=== PATIENT | male | born 1945 | race Caucasian/White ===

== ENCOUNTER 2021-02-05 14:55 | Emergency (ER) | payer MEDICARE, SELFPAY ==
[2021-02-05 15:00] VITALS: BP 143/77; PULSE 90; RESP 18; TEMP 36.5; O2SAT 96; BMI 25.7
--- NOTE | 2021-02-05 15:01 | XRR_ITS ---
PROCEDURE INFORMATION: Exam: XR Chest Exam date and time: 02/05/2021 3:06 PM Age: 75 years old Clinical indication: Cough and dyspnea; Smoker's cough; Additional info: Dyspnea/cough TECHNIQUE: Imaging protocol: XR of the chest. Views: 1 view. COMPARISON: No relevant prior studies available. FINDINGS: Lungs: Unremarkable. No consolidation. Pleural spaces: Unremarkable. No pleural effusion. No pneumothorax. Heart/Mediastinum: Unremarkable. No cardiomegaly. Bones/joints: Degenerative changes of the spine. XR/XR chest 1V portable [id number] IMPRESSION: No acute abnormality.
--- NOTE | 2021-02-05 15:01 | ECG_ITS ---
[facility] Test Date: 2021-02-05 Pat Name: Hiram Chacon Department: Room: Gender: Male [employer]: : 1945 Requested By: Kali Galan Order Number: [id number] Moiz MD: Josefina Bowie M.D. Measurements Intervals [place] Rate: 92 P: 90 NM: 191 QRS: 9 QRSD: 67 T: 51 QT: 346 QTc: 428 Interpretive Statements SINUS RHYTHM NONSPECIFIC T-WAVE ABNORMALITY INTERPRETATION BASED ON A DEFAULT AGE OF 40 YEARS No previous ECG available for comparison Electronically Signed On 02-06-2021 6:49:12 CDT by Josefina Bowie M.D. [id number] f
--- NOTE | 2021-02-05 15:14 | ED_ITS ---
HPI - Syncope General: Chief Complaint: Syncope Stated Complaint: syncopal episode Time Seen by Provider: 02/05/21 15:00 History of Present Illness: HPI narrative: 75-year-old male presents to the emergency room with a complaint of a syncopal episode. EMS was called to his home. Evidently he had smoked 1 or 2 puffs off of a marijuana cigarette and went to write a check and then passed out when EMS arrived he was severely bradycardic they administered atropine he was nonresponsive at the time the time he arrived here his heart rate had improved and his blood pressure had resolved he was awake and alert and responsive was able to give a history. He denies any chest pain or shortness of breath denies any major medical problems he is hypertensive but cannot recall if he is regularly been taking his medications. He does not really monitor his blood pressure. Denies any chest or abdominal pain denies any trauma he has no obvious external injuries. MD complaint: loss of consciousness Onset (ago): minute(s) Prodromal symptoms: none Context: at rest Injuries sustained associated with event: none Associated symptoms: Deny abdominal pain, chest pain, fever(s), headache(s), lightheadedness, nausea, short of breath, vertigo or weakness Treatments prior to arrival: IV fluids and other (atropine) Review of Systems Const: Denies: fever(s) ENMT: Denies: throat pain, ear or mastoid pain, nasal discharge or nasal congestion Card: Denies: chest pain or lightheadedness Resp: Denies: dyspnea, productive cough or non-productive cough GI: Denies: abdominal pain or nausea : Denies: flank pain, dysuria, urinary frequency or urinary urgency Skin/Breast: Denies: rash or pruritus Neuro: Denies: headache(s) or vertigo Physical Exam Const: COMMON NORMALS: no acute distress GENERAL APPEARANCE: cooperative and comfortable ORIENTATION/CONSCIOUSNESS: Yes awake, Yes oriented to person, Yes oriented to place and Yes oriented to time HENMT: COMMON NORMALS: normocephalic, atraumatic and hearing grossly normal bilaterally HEAD & SCALP: normocephalic and atraumatic Neck/C-Spine: COMMON NORMALS: full ROM, no lymphadenopathy, supple and no JVD Resp: COMMON NORMALS: normal respiratory effort, No retractions, No use of accessory muscles and clear to auscultation bilaterally AUSCULTATION: clear to auscultation bilaterally Cardio: COMMON NORMALS: no JVD, regular rate, regular rhythm and No murmurs present (Cardio) RATE: regular rate RHYTHM: regular rhythm GI: COMMON NORMALS: Soft to palpation and No hepatosplenomegaly present AUSCULTATION: Yes normoactive bowel sounds PALPATION: Yes Soft to palpation, No Tenderness to palpation present (GI), No Guarding due to palpation present (GI) and Yes No hepatosplenomegaly present Extremity: COMMON NORMALS: normal to inspection, capillary refill normal, no clubbing, cyanosis or edema, no calf tenderness and no pedal edema Neuro: SENSORIUM/ORIENTATION: Yes oriented to person, Yes oriented to place and Yes oriented to time Skin: COMMON NORMALS: no rashes or lesions noted GENERAL SKIN EXAM: no rashes or lesions noted Course Vital Signs: Vital signs: Vital Signs Temperature 97.7 F 02/05/21 15:00 Pulse Rate 78 02/05/21 16:15 Respiratory Rate 18 02/05/21 16:15 Blood Pressure 138/75 02/05/21 16:15 Pulse Oximetry 98 02/05/21 16:15 MDM - Syncope MDM Narrative: Medical decision making narrative: Patient refusing to allow completion of the evaluation. He says he wants to go home he will not stay for second troponin I recommend since he was a profoundly bradycardic that we monitor him overnight he refuses that as well his lactic acid is elevated and he says he understands it could be potentially dangerous if this recurs even life- threatening and still wishes to go home. He was told he could return if you wish to have further evaluation is recurrence of symptoms. Lab Data: Labs: Lab Results 02/05/21 02/05/21 02/05/21 Range/Units 15:23 15:23 15:23 WBC 4.5 (4.0-10.0) 10^3/ uL RBC 4.66 (4.1-5.3) 10^6/u L Hgb 14.1 (11.7-16.6) g/dL Hct 43.5 (42.0-52.0) % MCV 93.3 (80-94) fL MCH 30.3 (28.0-34.0) pg MCHC 32.4 (30.0-36.0) g/dL RDW 13.2 (12.1-15.1) % Plt Count 148 (130-400) 10^3/c mm MPV 9.9 (7.4-10.4) fL Neut % (Auto) 77.8 % Lymph % (Auto) 14.8 % Hartley % (Auto) 6.8 % Eos % (Auto) 0.0 % Baso % (Auto) 0.4 % Neut # (Auto) 3.53 (1.8-7.7) 10^3/u L Lymph # (Auto) 0.7 L (0.8-4.8) 10^3/u L Hartley # (Auto) 0.3 (0.2-0.9) 10^3/u L Eos # (Auto) 0.0 (0.0-0.8) 10^3/u L Baso # (Auto) 0.0 (0.0-0.1) 10^3/u L Nucleated RBC % (a uto) 0 % Nucleated RBCs # 0.0 /100WBC Sodium 139 (136-145) mmol/L Potassium 4.4 (3.5-5.1) mmol/L Chloride 107 (98-107) mmol/L Carbon Dioxide 23 (22-29) mmol/L Anion Gap 13.4 (5-19) BUN 8 (8-23) mg/dL Creatinine 0.8 (0.7-1.2) mg/dL GFR Calculation Not Reportable Glucose 109 (65-115) mg/dL Calculated Osmolal ity 287 (285-295) mOsm/k g Lactic Acid 2.3 H (0.5-2.2) mmol/L Calcium 7.3 L (8.5-10.5) mg/dL Magnesium 1.8 (1.7-2.3) mg/dL Total Bilirubin 0.9 (0.15-1.2) mg/dL AST 18 (0-40) U/L ALT 14 (0-41) U/L Alkaline Phosphata se 103 (40-130) IU/L Troponin T Baselin e (0-15) ng/L Total Protein 5.5 L (6.6-8.7) g/dL Albumin 3.5 (3.5-5.2) g/dL Globulin 2.0 (1.3-4.6) g/dL Lipase 19 (13-60) U/L // Range/Units 15:23 WBC (4.0-10.0) 10^3/ uL RBC (4.1-5.3) 10^6/u L Hgb (11.7-16.6) g/dL Hct (42.0-52.0) % MCV (80-94) fL MCH (28.0-34.0) pg MCHC (30.0-36.0) g/dL RDW (12.1-15.1) % Plt Count (130-400) 10^3/c mm MPV (7.4-10.4) fL Neut % (Auto) % Lymph % (Auto) % Hartley % (Auto) % Eos % (Auto) % Baso % (Auto) % Neut # (Auto) (1.8-7.7) 10^3/u L Lymph # (Auto) (0.8-4.8) 10^3/u L Hartley # (Auto) (0.2-0.9) 10^3/u L Eos # (Auto) (0.0-0.8) 10^3/u L Baso # (Auto) (0.0-0.1) 10^3/u L Nucleated RBC % (a uto) % Nucleated RBCs # /100WBC Sodium (136-145) mmol/L Potassium (3.5-5.1) mmol/L Chloride (98-107) mmol/L Carbon Dioxide (22-29) mmol/L Anion Gap (5-19) BUN (8-23) mg/dL Creatinine (0.7-1.2) mg/dL GFR Calculation Glucose (65-115) mg/dL Calculated Osmolal ity (285-295) mOsm/k g Lactic Acid (0.5-2.2) mmol/L Calcium (8.5-10.5) mg/dL Magnesium (1.7-2.3) mg/dL Total Bilirubin (0.15-1.2) mg/dL AST (0-40) U/L ALT (0-41) U/L Alkaline Phosphata se (40-130) IU/L Troponin T Baselin e 11 (0-15) ng/L Total Protein (6.6-8.7) g/dL Albumin (3.5-5.2) g/dL Globulin (1.3-4.6) g/dL Lipase (13-60) U/L Discharge Plan Discharge Patient Disposition: Left Against Medical Advice Clinical Impression: Bradycardia, Syncope Condition: Stable Referrals: Kali Castro DO [Emergency Provider] - Activity Restrictions/Additional Instructions: May return anytime if you have recurrence of symptoms or wish to be further evaluated. We could not complete your evaluation because you chose to leave and cannot be sure certain of exactly what happened. Coding Level of Care Code ED Assistant Professor Of Dietetics for Chg Fwd Exam Comprehensive
[2021-02-05 15:29] VITALS: BP 147/84; PULSE 87; RESP 14; O2SAT 94
[2021-02-05 15:33] LABS: Basophils % 0.4 %; Hematocrit 43.5 % (42.0-52.0); Hemoglobin 14.1 g/dL (11.7-16.6); Lymphocytes # 0.7 10^3/uL (0.8-4.8); Lymphocytes % 14.8 %; Mean Corpuscular HGB Conc 32.4 g/dL (30.0-36.0); Mean Corpuscular Hemoglobin 30.3 pg (28.0-34.0); Mean Corpuscular Volume 93.3 fL (80-94); Mean Platelet Volume 9.9 fL (7.4-10.4); Monocytes # 0.3 10^3/uL (0.2-0.9); Monocytes % 6.8 %; Neutrophils # 3.53 10^3/uL (1.8-7.7); Neutrophils % 77.8 %; Nucleated Red Blood Cells % 0 %; Platelet Count 148 10^3/cmm (130-400); Red Blood Count 4.66 10^6/uL (4.1-5.3); Red Cell Distribution Width 13.2 % (12.1-15.1); White Blood Count 4.5 10^3/uL (4.0-10.0)
[2021-02-05 15:56] LABS: Lactic Sepsis W/Reflex 2.3 mmol/L (0.5-2.2)
[2021-02-05 15:58] LABS: Alanine Aminotransferase 14 U/L (0-41); Albumin Level 3.5 g/dL (3.5-5.2); Alkaline Phosphatase 103 IU/L (40-130); Anion Gap 13.4 (5-19); Aspartate Amino Transferase 18 U/L (0-40); Blood Urea Nitrogen 8 mg/dL (8-23); Calcium 7.3 mg/dL (8.5-10.5); Carbon Dioxide 23 mmol/L (22-29); Chloride 107 mmol/L (98-107); Glucose 109 mg/dL (65-115); Lipase 19 U/L (13-60); Magnesium 1.8 mg/dL (1.7-2.3); Osmolality Calculated 287 mOsm/kg (285-295); Potassium 4.4 mmol/L (3.5-5.1); Sodium 139 mmol/L (136-145); Total Bilirubin 0.9 mg/dL (0.15-1.2); Total Protein 5.5 g/dL (6.6-8.7)
[2021-02-05 15:59] LABS: Troponin(5th) Baseline 11 ng/L (0-15)
[2021-02-05 16:15] VITALS: BP 138/75; PULSE 78; RESP 18; O2SAT 98
[2021-02-05 17:18] LABS: Reflex Lactate Order REFLEX LACTIC ORDERD
== END 2021-02-05 16:25 | disposition left against medical advice (07) ==
PROVIDERS: Emergency Provider Family Medicine; Family Provider Family Medicine
DX: R55 Syncope and collapse (principal); R00.1 Bradycardia, unspecified; Z53.21 Procedure and treatment not carried out due to patient leaving prior to being seen by health care provider
CPT/HCPCS: 71045; 80053; 83605; 83690; 83735; 84484; 85025; 93005; 99283

== ENCOUNTER 2021-02-27 08:12 | Outpatient (CLI) | payer MEDICARE, SELFPAY ==
--- NOTE | 2021-02-27 08:38 | FL_ITS ---
WS: [id number] ESOPHAGRAM TECHNIQUE: Double contrast examination was performed with thin and thick barium. Upright and MCLEAN imag es were obtained. CLINICAL INFORMATION: DYSPHAGIA COMPARISON: None. FINDINGS: Swallowing: No evidence of aspiration or penetration. Incidental slightly prominent cricopharyngeus. Incidental small Zenker's or pharyngeal diverticulum. Esophagus: Moderate esophageal dysmotility with delayed emptying on the upright view. Moderate esopha geal hiatal hernia with stricture proximal to the hernia. Delayed transit of the 13 mm barium tablet at the level of stricture. Esophageal mucosa in this area appears intact. Recommend further evaluatio n with endoscopy. Evidence of reflux esophagitis in the distal esophagus with rugal thickening in the stomach consisten t with gastritis. Reflux is visualized to the level of the upper thoracic esophagus on the supine warren ging. Gastroesophageal reflux: Active reflux to the upper thoracic esophagus Fluoroscopy time: 3.4 minutes. FL/FL barium swallow [id number] IMPRESSION: 1. Moderate esophageal dysmotility with delayed emptying on the upright view. 2. Moderate esophageal hiatal hernia with stricture proximal to the hernia in the distal esophagus. This results in delayed transit of the 13 mm barium table t at the stricture. Recommend further evaluation with endoscopy. 3. Evidence of reflux esophagitis and gastritis. 4. Reflux is visualized to the upper thoracic esophagus in the supine position .
== END 2021-02-27 08:13 | disposition home or self-care (01) ==
LOC: RADWPI 08:17
PROVIDERS: Visit Provider Family Medicine
DX: R13.10 Dysphagia, unspecified (principal); K21.9 Gastro-esophageal reflux disease without esophagitis; K44.9 Diaphragmatic hernia without obstruction or gangrene
CPT/HCPCS: 74220

== ENCOUNTER → 2024-04-19 12:37 | Outpatient (BNVA) | payer MEDICARE, SELFPAY | PROVIDERS: Visit Provider Nurse Practitioner Family | DX: L57.0 Actinic keratosis (principal); L82.1 Other seborrheic keratosis; L57.8 Other skin changes due to chronic exposure to nonionizing radiation; L81.4 Other melanin hyperpigmentation | CPT/HCPCS: 17000; 99203 ==

== ENCOUNTER 2024-12-15 13:20 | Outpatient (CLI) | payer MEDICARE, SELFPAY ==
--- NOTE | 2024-12-15 13:27 | MM_ITS ---
WS: [id number] LEFT 3D TOMOSYNTHESIS DIGITAL MAMMOGRAPHY WITH CAD CLINICAL INFORMATION: LEFT BREAST MASS HISTORY: Pain LEFT breast comes and goes. COMPARISON: None. TECHNIQUE: 3 views of the left breast were obtained. FINDINGS: The left breast is composed of heterogeneous fibroglandular density tissue, which can limit the detection of small underlying mass lesions. Dense parenchymal tissue deep to the LEFT areola. This is in the area of pain. Ultrasound of this area described below. ULTRASOUND BREAST LEFT TECHNIQUE: Ultrasound left breast focused area of concern. CLINICAL INFORMATION: LEFT BREAST MASS FINDINGS: Ultrasound subareolar LEFT breast. Dense underlying parenchymal tissue subareolar with shadowing. No focal mass or lesion. Findings are most compatible with gynecomastia. No other suspicious findings. No lesions to target for biopsy. MM/MM diag LT tomosynthesis [id number] IMPRESSION: DENSITY: The breasts are heterogeneously dense, which may obscure small masses. BI-RADS: 2 - Benign FOLLOW UP: See Report
== END 2024-12-15 13:21 | disposition home or self-care (01) ==
LOC: RAD 13:22
PROVIDERS: PCP Family Medicine; Visit Provider Family Medicine
DX: N63.20 Unspecified lump in the left breast, unspecified quadrant (principal); R92.332 Mammographic heterogeneous density, left breast; N64.89 Other specified disorders of breast
CPT/HCPCS: 76642; 77061; G0279

== ENCOUNTER 2025-03-09 14:15 | Outpatient (CLI) | payer MEDICARE, SELFPAY ==
--- NOTE | 2025-03-09 14:20 | CT_ITS ---
WS: [id number] CT ABDOMEN AND PELVIS WITH CONTRAST HISTORY: ABDOMINAL DISCOMFORT TECHNIQUE: Imaging performed of the abdomen and pelvis with IV contrast. Single phase imaging of the abdomen. Coronal and sagittal reformats are submitted. All CT scans at [facility] use at least one of these dose optimization techniques: automated exposure control; mA and/or kV adjustment per patient size (includes targeted exams where dose is matched to clinical indication); or iterative reconstruction. IV CONTRAST: Omnipaque 350; 100 mL IV. Oral contrast: Yes. DLP: 293.20 mGy.cm COMPARISON: None available. Lower thorax: Benign calcified granuloma LEFT lung base. Mild dependent changes at the RIGHT lung base. Heart is normal size. Small hiatal hernia. Liver/biliary system: Normal size with no intrahepatic dilatation. Gallbladder: Normal. No gallstones or wall thickening. No pericholecystic fluid. Pancreas: Normal size pancreas and pancreatic duct. No adjacent inflammation. Spleen: Normal size spleen. No mass or infarct. Adrenal glands: Normal RIGHT adrenal gland. 9 mm nodule associated with the LEFT adrenal gland is too small to characterize. Right kidney: Normal. Left kidney: Normal. Aorta: Infrarenal abdominal aortic aneurysm with a maximum diameter of 4.2 cm. Near circumferential thrombus surrounding a patent lumen. Aneurysm tapers to the bifurcation. Moderate atherosclerotic plaque through the iliac arteries into the femoral arteries. SMA and celiac axis are patent. Renal arteries are patent. Retroaortic RIGHT renal vein. Lymphadenopathy: None. Free fluid: None. GI tract: Nondistended stomach. No small bowel obstruction. Tortuous overlapping loops of colon with mild constipation. No GI tract obstruction. There is an area of very mild narrowing and stricture involving the mid descending colon. No associated mass. This may be related to normal peristaltic movement. Abdominal wall: Fat containing umbilical hernia. Pelvis: Urinary bladder is well distended. There is small calcifications within the urinary bladder. No wall thickening or enhancement. Prostate gland is enlarged and heterogeneous. Bones: 5 mm anterolisthesis of L5. Bilateral L5 pars defects. Subchondral cystic changes along the RIGHT acetabulum. CT/CT abdomen pelvis w con* [id number] IMPRESSION: 1. Infrarenal abdominal aortic aneurysm with a maximum diameter 4.2 cm. No rup ture. 2. Calcified plaque extends into the iliac and femoral arteries. 3. No renal obstruction. 4. No ascites or adenopathy. 5. Small calcifications in the urinary bladder. No bladder wall enhancement. 6. Heterogeneous enlarged prostate. 7. Moderate diffuse constipation. Short segment luminal narrowing involving th e descending colon. No mass. This may be due to an area of peristalsis. Conside r evaluation by colonoscopy. 8. 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
[2025-03-09] MEDS: iohexol 350 mg/mL 500 mL Btl (per mL) PO (15:10)
[2025-03-09 15:49] LABS: Blood Urea Nitrogen 8 mg/dL (8-23)
[2025-03-09] MEDS: iohexol 350 mg/mL 500 mL Btl (per mL) IV (16:25)
== END 2025-03-09 14:16 | disposition home or self-care (01) ==
LOC: RAD 14:17
PROVIDERS: Radiology Diagnostic Radiology; PCP Family Medicine; Visit Provider Family Medicine
DX: I71.43 Infrarenal abdominal aortic aneurysm, without rupture (principal); K59.00 Constipation, unspecified; N40.0 Benign prostatic hyperplasia without lower urinary tract symptoms
CPT/HCPCS: 74177; 82565; 84520